=== PATIENT | female | born 1960 | race Caucasian/White ===

== ENCOUNTER 2022-04-02 09:07 | Day surgery (SDC) | payer OTHER, SELFPAY ==
[2022-03-23 13:37] VITALS: BMI 31.5
[2022-03-26 09:37] VITALS: BMI 30.8
--- NOTE | 2022-03-30 14:29 | PM.HPGS ---
History of Present Illness History of Present Illness Consent: Risks, benefits, and alternatives have been discussed and questions answered. Patient agrees to proceed with procedure. Chief complaint: Neoplasm Screening Narrative: Nannette Chu is a 61 year old female Referred for colon cancer screening. Review of Systems Review of Systems: All systems reviewed & are unremarkable except as noted in HPI and below PMFSH Past Medical History Medical History Hypertension Surgical History Surgical History History of tubal ligation Social History Social History Smoking status: Never smoker Alcohol intake: current Substance use type: does not use Living arrangements: with family Spiritual care concerns: No Meds Home Medications and Allergies Home Medications Medication Instructions Recorded Confirmed Type candesartan 16 1 tablet PO DAILY 03/26/22 04/02/22 History mg-hydrochlorothiazide 12.5 mg tablet Allergies Allergy/AdvReac Type Severity Reaction Status Date / Time amoxicillin Allergy Severe Hives / Verified 04/02/22 09:56 Red Face clavulanic acid Allergy Severe Hives / Verified 04/02/22 09:56 Red Face erythromycin base AdvReac Unknown WEIRD Verified 04/02/22 09:56 DREAMS Exam Const: General: alert Orientation/consciousness: patient oriented x3 Resp: Auscultation: clear to auscultation bilaterally Cardio: Rhythm: regular rhythm GI: GI Palp: Yes Soft to palpation and No Tenderness to palpation present (GI) Neuro: General: patient oriented x3 Assessment and Plan Assessment and plan (1) Colon cancer screening: Code(s): Z12.11 - Encounter for screening for malignant neoplasm of colon Status: Acute Assessment and Plan: Colonoscopy with possible biopsy or polypectomy or cautery or injection of substances.
--- NOTE | 2022-04-02 07:24 | P.PNAN_ITS ---
Anes - Initial Pre Proc Eval Procedure: Operation Date: 04/02/22 11:00 Proposed Procedures p Screening Colonoscopy - Rajinder Berry MD Date/Time: 04/02/22 07:24 Surgeon: Rajinder Berry MD Pre Op Diagnosis: Neoplasm Screening Patient Data Age: 61 Gender: F Height: 1.6 m Weight: 79 kg Allergies Allergy/AdvReac Type Severity Reaction Status Date / Time amoxicillin Allergy Severe Hives / Verified 04/02/22 09:56 Red Face clavulanic acid Allergy Severe Hives / Verified 04/02/22 09:56 Red Face erythromycin base AdvReac Unknown WEIRD Verified 04/02/22 09:56 DREAMS Home Medications Medication Instructions Recorded Confirmed Type candesartan 16 1 tablet PO DAILY 03/26/22 04/02/22 History mg-hydrochlorothiazide 12.5 mg tablet Patient hx anesthesia problems: none Family hx anesthesia problems: none Results Review: All pre-operative results and documents have been reviewed as part of the pre- operative evaluation. PMFSH Past Medical History Medical History Hypertension Surgical History Surgical History History of tubal ligation Social History Social History Smoking status: Never smoker Alcohol intake: current Substance use type: does not use Living arrangements: with family Spiritual care concerns: No Anes - Eval Final PreProcedure Day of Procedure 04/02/22 07:24 Patient weight: obese Heart: regular rate and rhythm Lungs: clear to auscultation Airway: Mallampati scale class II Neurological: alert and oriented Last oral intake: >/= 8 hours ASA classification: III Emergent: no Anesthetic plan: proceed Anesthesia type and monitoring: general GIVS and standard monitoring Results Review: All pre-operative results and documents have been reviewed as part of the pre- operative evaluation. Informed Consent: The patient's anesthetic plan and its attendant risks and benefits were discussed with the patient/family/POA. Questions were solicited and answers provided to the satisfaction of the patient/family/POA.
[2022-04-02 09:55] VITALS: BP 169/98; PULSE 111; RESP 20; TEMP 37.3; O2SAT 100
[2022-04-02] MEDS: LACTATED RINGERS 1,000 ML 150 ML IV CONT (10:14)
[2022-04-02 11:50] VITALS: BP 106/59; PULSE 87; RESP 14; O2SAT 97
[2022-04-02 12:00] VITALS: BP 105/62; PULSE 91; RESP 16; O2SAT 99
[2022-04-02 12:10] VITALS: BP 114/79; PULSE 78; RESP 18; O2SAT 100
--- NOTE | 2022-04-02 13:50 | WPDANESPN ---
Anes - Prog Note Post-Op Date/Time: 04/02/22 13:50 Cardiovascular status: normal Respiratory status: normal Airway patency: baseline Mental status: baseline Post-Op hydration status: normal Vital Signs: Last Vital Signs Temp 37.3 C 04/02/22 09:55 Pulse 78 04/02/22 12:10 Resp 18 04/02/22 12:10 BP 114/79 04/02/22 12:10 Pulse Ox 100 04/02/22 12:10 O2 Del Method Room Air 04/02/22 12:10 Pain Score (VAS): 0 I/O: Intake & Output 04/01/22 04/02/22 04/02/22 23:59 07:59 15:59 Intake Total 1360 Balance 1360 Post-procedural complaints: none Patient Feedback: Patient satisfied with anesthetic care. Other Findings: Patient vital signs back to baseline. Patient denies nausea and vomiting. Patient's pain under control. Patient OK for discharge.
== END 2022-04-02 12:30 | disposition home or self-care (01) ==
PROVIDERS: PCP Physician Assistant; Visit Provider Internal Medicine Gastroenterology
PROC: 0DJD8ZZ Inspection of Lower Intestinal Tract, Via Natural or Artificial Opening Endoscopic (ICD-10-PCS; CPT 45378; principal; 2022-04-02 11:00)
DX: Z12.11 Encounter for screening for malignant neoplasm of colon (principal)
CPT/HCPCS: 45378

== ENCOUNTER 2023-01-19 11:58 | Emergency (ER) | payer OTHER, SELFPAY ==
[2023-01-19 12:08] VITALS: BP 142/82; PULSE 84; RESP 18; TEMP 36.6; O2SAT 98
--- NOTE | 2023-01-19 12:20 | ED.URI ---
HPI - URI/Sore Throat General Chief Complaint: Upper Respiratory Infection Stated Complaint: Cough,Congestion Time Seen by Provider: 01/19/23 11:59 Source: patient Mode of arrival: ambulatory Limitations: no limitations History of Present Illness HPI Narrative: 62-year-old female presents to [facility] with complaints of harsh barky-like cough, postnasal drip, runny nose, nasal congestion and sore throat from coughing for the past 5-6 days. Patient has been taking ucto-viq-flwwngi Mucinex and Vicks with minimal relief. Patient reports history of bronchitis. Patient denies body aches, chills, nausea vomiting or diarrhea. Patient is nonsmoker. Patient denies sick contacts. Patient denies recent travel. MD elicited complaint: sore throat, rhinorrhea and nasal congestion Pertinent past history: other (bronchitis) Onset (ago): day(s) (5-6) Able to tolerate fluids by mouth: Yes Exacerbating factors: nothing Treatments prior to arrival: cold medicine Related Data Home Medications Medication Instructions Recorded Confirmed losartan 50 mg-hydrochlorothiazide 1 tablet PO DAILY 01/19/23 01/19/23 12.5 mg tablet Allergies Allergy/AdvReac Type Severity Reaction Status Date / Time amoxicillin Allergy Severe Hives / Verified 04/02/22 09:56 Red Face clavulanic acid Allergy Severe Hives / Verified 04/02/22 09:56 Red Face erythromycin base AdvReac Unknown WEIRD Verified 04/02/22 09:56 DREAMS Review of Systems Constitutional: Constitutional: Denies chills, Denies fatigue, Denies fever(s) and Denies weakness ENT: Denies vertigo, Denies dizziness, Denies epistaxis, Denies nasal congestion and Reports sore throat Cardiovascular: Cardiovascular: Denies chest pain Respiratory: Respiratory: Reports cough, Denies dyspnea and Denies wheezing Gastrointestinal: Gastrointestinal: Denies diarrhea, Denies nausea and Denies vomiting Integumentary/Breasts: Skin/Breast: Denies rash Neurologic: Denies dizziness, Denies syncope and Denies headache(s) [facility] Past Medical History Medical History Hypertension Surgical History Surgical History History of tubal ligation Social History Social History Smoking status: Never smoker Alcohol intake: current Substance use type: does not use Living arrangements: with family Spiritual care concerns: No Comments At time of signature, I agree with nursing past medical, surgical, social and family history. There is no relevant family history pertinent to the presenting complaint. Exam Const: General: healthy appearing and no acute distress Nutritional Appearance: well nourished Orientation/consciousness: patient oriented x3 Limitations: no limitations HENMT: Head: normal to inspection Ears: external ears normal, TM's normal bilaterally and EAC's normal Face/Nose/Sinus: Normal external nose present Mouth: Yes Normal oral and palatal mucosa present and Yes moist mucous membranes Throat: posterior oropharynx normal and uvula midline Eyes: Conjunctivae: conjunctivae normal Neck: Neck: normal visual inspection Resp: Effort & Inspection: normal respiratory effort and not labored Auscultation: clear to auscultation bilaterally, no crackles, no rales, no rhonchi and no wheezes Other: Frequent harsh nonproductive cough noted Cardio: Rate: regular rate Heart sounds: no murmurs Skin: General skin exam: normal color Rashes: no rashes Neuro: General: patient oriented x3 Speech: normal speech Gait exam (Neuro): Normal gait present Psych: Affect: normal affect Attitude: cooperative Course Course Level of Care: Express Care Visit Vital Signs Vital signs: Vital Signs Temperature 36.6 C 01/19/23 12:08 Pulse Rate 84 01/19/23 12:08 Respiratory Rate 18 01/19/23 12:08 Blood Pre
== END 2023-01-19 12:37 | disposition home or self-care (01) ==
PROVIDERS: Emergency Provider Nurse Practitioner Family; PCP Physician Assistant
DX: J06.9 Acute upper respiratory infection, unspecified (principal); I10 Essential (primary) hypertension; Z79.899 Other long term (current) drug therapy
CPT/HCPCS: 99213; G0463

== ENCOUNTER 2024-08-07 07:48 | Outpatient (CLI) | payer OTHER, SELFPAY ==
--- NOTE | ~2024-08-07 | CT_ITS ---
CT of the Abdomen and Pelvis: Indication: Renal cyst Technique: 2.5 mm axial scans were obtained through the abdomen and pelvis prior to and following in travenous administration of 100 cc of Omnipaque 350. Dose reduction technique was used on this scan b y utilizing automated exposure control and iterative reconstruction technique. The dose-length produc t (DLP) was 1196.38 mGy-cm. Findings: Scans through the lung bases are unremarkable. The liver, spleen, pancreas, and adrenal glands are within normal limits. Small gallstone present. Bi lateral parapelvic renal cysts are present. There are atherosclerotic calcifications of the aorta. N o lymphadenopathy. No bowel obstruction or bowel wall thickening. There is no evidence to suggest acute appendicitis. Images through the pelvis were performed. Urinary bladder unremarkable. No pelvic mass seen. No ascit es. Impression: Bilateral parapelvic renal cysts. Cholelithiasis. Reviewed, dictated and finalized at [facility]. Impression: Bilateral parapelvic renal cysts. Cholelithiasis.
[2024-08-07 08:20] LABS: Estimated Glomerular Filt Rate 56
== END 2024-08-07 07:49 | disposition home or self-care (01) ==
PROVIDERS: PCP Physician Assistant; Visit Provider Physician Assistant
DX: N28.1 Cyst of kidney, acquired (principal); K80.20 Calculus of gallbladder without cholecystitis without obstruction
CPT/HCPCS: 74178; Q9967

== ENCOUNTER 2025-02-23 09:37 | Outpatient (CLI) | payer OTHER, SELFPAY ==
--- NOTE | ~2025-02-23 | NM_ITS ---
EXAMINATION: NM parathyroid w imaging DATE: 02/23/2025 14:04 INDICATION: Hypercalcemia TECHNIQUE: 19.4 mCi Tc99m sestamibi (Cardiolite) was administered by intravenous route. Anterior images of the neck were obtained at 10 minutes and 3 hours. COMPARISON: None. FINDINGS/IMPRESSION: There is a prominent focus of persistent activity in the mid to inferior left thyroid lobe which is suspicious for parathyroid adenoma. Reviewed, dictated and finalized at location A. B CONSULTANT
--- OUTSIDE RECORDS SUMMARY | 2025-02-23 09:51 | XMS_ITS | Encounter Summary ---
Author Organization [facility] Address [address] [place] [address] Care Team Providers Care Excellence Coach Name Role Phone Griselda Shea [facility] Primary Care Provider + Bailey Newby MD Unavailable [phone] Michael Hercules MD Primary Care Provider [phone] Bigg Hercules MD Primary Care Provider [phone] Reason for Visit * Reason Onset Date Comments Medication 04/21/2024 Encounter Details Date Type Department Care Team (Late st Contact Info) Description 04/21/2024 [employer] Message Enc [facility] Medical Group Family & Internal Medicine [address] [address] Madeline [facility] Provider Vit D Social History Tobacco Use Types Packs/Day Years Used Date Smoking Tobacco: Never Passive Smoke Exposure: Never Smokeless Tobacco: Never Alcohol Use Standard Drinks/Week Comments Yes 6.7 (1 standard drink = 0.6 oz p ure alcohol) ocassional PHQ-2 Answer Date Recorded Patient Health Questionnaire-2 Score 0 04/03/2024 Education Answer Date Recorded What is the highest level of school you have completed or the highest degree you have received? Some college, no degree 01/21/2018 Comments No Sex and Gender Information Value Date Recorded Sex Assigned at Female 04/03/2024 9:43 AM CROWNING INSPECTOR Legal Sex Female 7:33 PM CDT Gender Identity Female 04/03/2024 9:43 AM CROWNING INSPECTOR Sexual Orientation Not on file Occupation Industry Job Start Date Job End Date Not on file Not on file Not on file Not on file documented as of this encounter Progress Notes * Kindra Solorio - 04/21/2024 2:49 PM CST Nannette calling back, states she has been taking 2000 of Vitamin D. She will double up and take 4000 as she does not want to go out an buy another bottle and let the other go to waste. Nannette will then recheck Vitamin D and go from there. If anything different please let her know. NING INSPECTOR documented in this encounter Plan of Treatment Upcoming Encounters Date Type Department Care Team (Late st Contact Info) Description 03/02/2025 10:20 AM CROWNING INSPECTOR Office Visit [facility] Family & Internal Medicine - [address] [address] [place] [id number] [place] [id number] 05/04/2025 12:30 PM CDT Appointment [place] [address] [facility] [address] Daniel Hartmann DO 3 [facility] [address] [place] [address] 05/14/2025 10:30 AM CDT Office Visit [facility] Multispecialty Care - [facility] [address] [facility] [address] [place] [id number] Daniel Hartmann DO [address] [facility] [address] [place] [phone] documented as of this encounter Visit Diagnoses Not on filedocumented in this encounter Additional Health Concerns Assessment Noted Time PHQ-9 Depression Total Score: 0 04/03/19 10:52 AM CROWNING INSPECTOR documented as of this encounter Care Teams Excellence Coach Relationship Specialty Start Date End Date Griselda Shea [facility], [facility]- PCP - General Nurse Practitioner Family 05/21/2308/25 [place] [address] [employer] [address] [place] [address] PCP - General INTERNAL MEDICINE 09/05/24 11/22/24 [place] [address] [employer] [address] [place] [address] PCP - General INTERNAL MEDICINE 11/23/24 Bailey Newby MD [address] [address] ENDOCRINOLOGY 05/07/24 documented as of this encounter
--- OUTSIDE RECORDS SUMMARY | 2025-02-23 09:51 | XMS_ITS | Encounter Summary ---
Author Organization [facility] Address [facility] [place] [address] Care Team Providers Care Tailor Helper Name Role Phone Bailey Newby MD Unavailable [phone] Michael Hercules MD Primary Care Provider [phone] Bigg Hercules MD Primary Care Provider [phone] Reason for Referral * Imaging (Routine) - New Request Specialty Diagnoses / Procedures Referred By Mary hinojosa Referred To Contact RADIOLOGY Diagnoses Lung nodule seen on imaging study Procedures CT CHEST [place] [address] [facility] [address] [place] [address] Phone: tel: fax: Referral ID Status Reason Start Date Expiration Date V isits Requested Visits Authorized [id number] New Request 11/13/2024 11/13/2025 1 1 Encounter Details Date Type Department Care Team (Late st Contact Info) Description 11/09/2024 MyChart Message Enc [facility] Medical Group Family & Internal Medicine [address] [address] [place] [address] [facility] [address] [place] [address] [address] [address] scan with Contrast on November 03 Social History Tobacco Use Types Packs/Day Years [...] Sex Assigned at Female 04/03/2024 9:43 AM ADMINISTRATIVE SUPPORT SPECIALIST Legal Sex Female 7:33 PM CDT Gender Identity Female 04/03/2024 9:43 AM ADMINISTRATIVE SUPPORT SPECIALIST Sexual Orientation Not on file Occupation Industry Job Start Date Job End Date Not on file Not on file Not on file Not on file documented as of this encounter Progress Notes * Suyapa Singh MA - 11/13/2024 2:33 PM CDT Followed up with patient about CT results and apt with Dr. Hartmann. Patient is to see Dr. Hartmann May 14 2025. He ordered more imaging that saul is to get done before her appt with him. Patient mentioned possibly seeing another provider within the office. Has Est Care apt with Dr. Agosto 11/23 @ 4:20 * Saul Thomas LPN - 11/12/2024 2:17 PM CDT Pt called she has appt with Dr. Hartmann 11/13/24 and has not heard of CT chest results in or sent to Dr. Hartmann's office [place] called [facility] about this and there is no notes if they call her back Imaging status still says Active in process Pt is going to call [facility] now to speak to radiology dept * Suyapa Singh MA - 11/10/2024 3:36 PM CDT Called radiology at [facility] (where pt got CT done) left message with reception manager to call me back about pt CT. * Saul Thomas LPN - 11/10/2024 2:34 PM CDT Pt called said that she checked with Dr. Hartmann and he still does not have the CT her appt with in on 11/13/24 she will check again on 11/12/24 if she does not have results no need to keep appt with Shahbaz could someone call and see what is taking so lone ? documented in this encounter Plan of Treatment Upcoming Encounters Date Type Department Care Team (Late st Contact Info) Description 03/02/2025 10:20 AM ADMINISTRATIVE SUPPORT SPECIALIST Office Visit [facility] Family & Internal Medicine - [place] [id number] [place] [address] [place] [address] [facility] [address] [place] [address] 05/04/2025 12:30 PM CDT [place]ment [place] [address] Daniel Hartmann DO 3 [facility] [address] [place] [address] 05/14/2025 10:30 AM CDT Office Visit [facility] Multispecialty Care - [facility] [address] [facility] [address] [place] [phone] Daniel Hartmann, 3 [facility] [address] [place] [address] Scheduled Orders Name Type Priority Associated Diagnoses Orde r Schedule CT CHEST WO LUNG NOD FLUP CT Routine Lung nodule seen on imaging study Expected: 11/13/2025, Expires: 11/13/2025 documented as of this encounter Visit Diagnoses Diagnosis Lung nodule seen on imaging study- Primary Solitary pulmonary nodule documented in this encounter Additional Health Concerns Assessment Noted Time PHQ-9 Depression Total Score: 0 04/03/19 10:52 AM ADMINISTRATIVE SUPPORT SPECIALIST documented as of this encounter Care Teams Tailor Helper Relationship Specialty [place] [address] [place] [address] PCP - General INTERNAL MEDICINE 09/05/24 11/22/24 [place] [address] [place] [address] PCP - General INTERNAL MEDICINE 11/23/24 Bailey Newby MD [address] [address] ENDOCRINOLOGY 05/07/24 documented as of this encounter
--- OUTSIDE RECORDS SUMMARY | 2025-02-23 09:51 | XMS_ITS | Encounter Summary ---
Author Organization [facility] Address [facility] [place] [address] Care Team Providers Care Neon Sign Servicer Name Role Phone Griselda Shea [facility] Primary Care Provider + Bailey Newby MD Unavailable [phone] Michael Hercules MD Primary Care Provider [phone] Bigg Hercules MD Primary Care Provider [phone] Encounter Details Date Type Department Care Team (Late st Contact Info) Description 05/01/2024 MyChart Message Enc [facility] Medical Group Family & Internal Medicine [address] [address] Griselda Shea, [facility] [address] [address] Referral for Thyroid Social History Tobacco Use Types Packs/Day Years [...] Sex Assigned at Female 04/03/2024 9:43 AM MORTARMAN Legal Sex Female 7:33 PM CDT Gender Identity Female 04/03/2024 9:43 AM MORTARMAN Sexual Orientation Not on file Occupation Industry Job Start Date Job End Date Not on file Not on file Not on file Not on file documented as of this encounter Progress Notes * CHRISTINA Palmer - 05/06/2024 12:38 PM CDT Discussed with RN and agree with below. * Alta Méndez RN - 05/06/2024 11:46 AM CDT Please advise, does patient need to be seen sooner than November. The referral has been entered. * CHRISTINA Palmer - 05/05/2024 9:[address] pulmonology consult for lung nodules, abnormal CT of chest * Alta Méndez RN - 05/05/2024 9:05 AM CDT 04/29/2024 12:42 PM MORTARMAN ----- CT shows slight decrease in left lower lobe nodule, multiple nodules still noted, infectious cause still most likely. Repeat chest CT recommended in 6 months. If she develops respiratory symptoms (I.e shortness of breath, chronic cough, sputum changes, chest pain, fatigue, night sweats), I would recommend repeat sooner and pulmonology consult Please advise. Did you want a pulmonology consult now or order if she develops the above respiratory symptoms? I did not enter one at this time? Please let me know. Thanks! documented in this encounter Plan of Treatment Upcoming Encounters Date Type Department Care Team (Late st Contact Info) Description 03/02/2025 10:20 AM MORTARMAN Office Visit [facility] Family & Internal Medicine - [place] [address] [place] [address] [place] [address] [facility] [address] [place] [address] 05/04/2025 12:30 PM CDT Appointment [place] [address] [facility] [place] [address] Daniel Hartmann DO [address] [facility] [address] [place] [address] 05/14/2025 10:30 AM CDT Office Visit [facility] Multispecialty Care - [facility] [address] [facility] [address] [place] [address] Daniel Hartmann DO [address] [facility] [address] [place] [address] documented as of this encounter Visit Diagnoses Not on filedocumented in this encounter Additional Health Concerns Assessment Noted Time PHQ-9 Depression Total Score: 0 04/03/19 10:52 AM MORTARMAN documented as of this encounter Care Teams Neon Sign Servicer Relationship Specialty Start Date End Date Griselda Shea, BUG [employer]IMMER- PCP - General Nurse Practitioner Family 05/21/2308/25 [place] [address] [facility] [address] [place] [address] PCP - General INTERNAL MEDICINE 09/05/24 11/22/24 [place] [address] [facility] [address] [place] [address] PCP - General INTERNAL MEDICINE 11/23/24 Bailey Newby MD [address] [address] ENDOCRINOLOGY 05/07/24 documented as of this encounter
--- OUTSIDE RECORDS SUMMARY | 2025-02-23 09:51 | XMS_ITS | Encounter Summary ---
Author Organization [facility] Address [facility] [place] [address] Care Team Providers Care Student Support Services Director Name Role Phone Griselda Shea [facility] Primary Care Provider + Bailey Newby MD Unavailable [phone] Michael Hercules MD Primary Care Provider [phone] Bigg Hercules MD Primary Care Provider [phone] Encounter Details Date Type Department Care Team (Late st Contact Info) Description 07/01/2024 [employer]CSpeakeasy Inct Message Enc [facility] Medical [facility] Family & Internal Medicine [address] [address] Griselda Shea, [facility] [address] [address] Ultra sound on my Thyroid Social History Tobacco Use Types Packs/Day [...] Sex Assigned at Female 04/03/2024 9:43 AM CHECKERING MACHINE OPERATOR Legal Sex Female 7:33 PM CDT Gender Identity Female 04/03/2024 9:43 AM CHECKERING MACHINE OPERATOR Sexual Orientation Not on file Occupation Industry Job Start Date Job End Date Not on file Not on file Not on file Not on file documented as of this encounter Plan of Treatment Upcoming Encounters Date Type Department Care Team (Late st Contact Info) Description 03/02/2025 10:20 AM CHECKERING MACHINE OPERATOR Office Visit [facility] Family & Internal Medicine - [place] [address] [place] [address] [place] [address] [facility] [address] [place] [phone] 05/04/2025 12:30 PM CDT Appointment [facility] [address] [place] [address] Daniel Hartmann DO [address] [facility] [address] [place] [address] 05/14/2025 10:30 AM CDT Office Visit [facility] Multispecialty Care - [facility] [address] [facility] [address] [place] [address] Daniel Hartmann DO [address] [facility] [address] [place] [address] documented as of this encounter Visit Diagnoses Not on filedocumented in this encounter Additional Health Concerns Assessment Noted Time PHQ-9 Depression Total Score: 0 04/03/19 10:52 AM CHECKERING MACHINE OPERATOR documented as of this encounter Care Teams Student Support Services Director Relationship Specialty Start Date End Date Griselda Shea, [facility]- PCP - General Nurse Practitioner Family 05/21/2308/25 [place] [address] [place] [address] PCP - General INTERNAL MEDICINE 09/05/24 11/22/24 [place] [address] [place] [address] PCP - General INTERNAL MEDICINE 11/23/24 Bailey Newby MD [address] [address] ENDOCRINOLOGY 05/07/24 documented as of this encounter
--- OUTSIDE RECORDS SUMMARY | 2025-02-23 09:52 | XMS_ITS | Clinical Summary ---
Author Organization [facility] Address [facility] [place] [address] Care Team Providers Care Sales Management Trainee Name Role Phone Bailey Newby MD Unavailable [phone] Bigg Hercules MD Primary Care Provider [phone] Allergies Active Allergy Reactions Criticality Noted Date Comments Azithromycin Hives Medium 01/08/2024 Erythromycin Base Other (see comment) 3 Weird dreams Medications losartan-hydroCHL OROthiazide (HYZAAR) 50-12.5 MG tabletIndications :Primary hypertension TAKE 1 TABLET BY MOUTH DAILY 90 tablet 3 06/26/19 25 Active Cholecalciferol (VITAMIN D3) 50 MCG (1999 UT) Cap 06/27/19 25 Active calcium carb-cholecalcife rol (CALTRATE+D) 600-10 MG-MCG Tab tablet 1 tablet daily. Active rosuvastatin (CRESTOR) 10 MG tabletIndications :Other hyperlipidemia Take 1 tablet (10 mg total) by mouth nightly at bedtime. 90 tablet 1 02/09/20 25 Active rosuvastatin (CRESTOR) 10 MG tabletIndications :Other hyperlipidemia Take 1 tablet (10 mg total) by mouth nightly at bedtime. 30 tablet 2 11/24/19 25 025 Discontinued rosuvastatin (CRESTOR) 10 MG tabletIndications :Other hyperlipidemia TAKE 1 TABLET(10 MG) BY MOUTH EVERY NIGHT AT BEDTIME 90 tablet 1 01/26/20 25 025 Discontinued(Re order) Active Problems Problem Noted Date Diagnosed Date Thyroid nodule 11/23/2024 Renal cyst 11/23/2024 Assessment & Plan (11/23/2024 5:11 PM CDT): - She recently had a CT scan in April or July 2024 with her urologist Lung nodule seen on imaging study 11/13/2024 Assessment & Plan (11/23/2024 5:11 PM CDT): - She is under the care of a reporter and is advised to follow up with the reporter as scheduled in 6 months for a follow-up CT scan. Hypercalcemia 09/25/2017 Ovarian cyst 09/24/2017 Right flank pain 01/23/2017 Atrial septal aneurysm 05/12/2012 Hyperlipidemia 05/12/2012 Assessment & Plan (11/23/2024 5:11 PM CDT): - Her LDL cholesterol level remains elevated despite dietary modifications. - She discussed her risk factors including hypertension, postmenopausal status, and being slightly overweight. She was counseled on maintaining a healthy diet rich in fresh fruits, vegetables, and omega-3 fatty acids from nuts and fish. - Rosuvastatin 10 mg daily will be started. Orders: rosuvastatin (CRESTOR) 10 MG tablet; Take 1 tablet (10 mg total) by mouth nightly at bedtime. LIPID PANEL; Future Primary hypertension 05/12/2012 Assessment & Plan (11/23/2024 5:11 PM CDT): - Her blood pressure is slightly elevated today. - She reported home blood pressure readings of 135/70 and 140. - She was advised to continue monitoring her blood pressure at home and bring the readings to her next appointment. A reduction in salt intake is also recommended. - The current dosage of losartan hydrochlorothiazide 50/12.5 mg once daily will be continued. Orders: COMPREHENSIVE METABOLIC PANEL; Future CBC W/DIFF AUTOMATED; Future Murmur 05/12/2012 Resolved Problems Problem Noted Date Diagnosed Date Resolved Date Chest pain 05/10/2021 05/29/2023 Normal routine physical examination 09/24/2017 11/06/2019 Bronchospasm 03/08/2017 05/29/2023 Right acute otitis media 01/23/201704/2023 URI, acute 01/23/2017 05/29/2023 UTI (urinary tract infection) 01/23/2017 05/29/2023 Encounter for preventive health examination 04/22/2012 11/06/2019 Encounters Date Type Department Care Team Description 02/08/2025 Results Follow-Up [facility] Family & Internal Medicine [facility] [address] [place] [address] Bigg Hercules MD HEMOGLOBIN, GLYCOSYLATED, CBC W/DIFF, TSH W/REFLEX, Additional followed-up results: 2 02/05/2025 Orders Only [facility] Family & Internal Medicine [facility] [address] [place] [address] Bigg Hercules MD from Last 3 Months Immunizations Immunization Administration Dates Next Due Arexvy Respiratory Syncytial Virus (RSV, adjuvanted) 0.5 mL, PF 03/04/2024 Influenza (Generic) 12/10/2014 Influenza Adult (Generic) 12/17/2022,12/24/2016 PFIZER COVID-19 (ORIGINAL FO RMULATION, PURPLE CAP) mRNA, LNP-S, PF, 30 MCG/0.3 ML DOSE 11/28/2020,11/03/2020 Tdap (Generic) 12/24/2016 Family History Medical History Relation Comments Heart Disease Brother Hypertension Brother Heart Disease Father Hypertension Father Diabetes Maternal Aunt Arthritis Mother Breast Cancer Mother Cancer Mother Hyperlipidemia Mother Hypertension Mother Breast Cancer Sister Lung cancer Cancer Sister Lung cancer Early Hearing Loss Sister In her 60 s Hypertension Sister Relation Status Comments Brother Father Maternal Aunt Mother Alive Sister Social History Tobacco Use Types Packs/Day Years Used Date Smoking Tobacco: Never Passive Smoke Exposure: Never Smokeless Tobacco: Never Tobacco Cessation:Counseling Given: No Alcohol Use Standard Drinks/Week Comments Yes 6.7 [...] Sex Assigned at Female 04/03/2024 9:43 AM SOLID SURFACE FABRICATOR Legal Sex Female 7:33 PM CDT Gender Identity Female 04/03/2024 9:43 AM SOLID SURFACE FABRICATOR Sexual Orientation Not on file Occupation Industry Job Start Date Job End Date Not on file Not on file Not on file Not on file Last Filed Vital Signs Vital Sign Reading Time Taken Comments Blood Pressure 152/70 11/23/2024 4:40 PM CDT man ual Pulse 67 11/23/2024 4:27 PM CDT Temperature 36.3 C (97.3 F) 11/23/2024 4:27 PM CDT Respiratory Rate 16 11/23/2024 4:27 PM CDT Oxygen Saturation 99% 11/23/2024 4:27 PM CDT Inhaled Oxygen Concentration - - Weight 77.9 kg (171 lb 12.8 oz) 11/23/2024 4:27 PM CDT Height 160 cm (5' 3) 11/23/2024 4:27 PM CDT Body Mass Index 30.43 11/23/2024 4:27 PM CDT Plan of Treatment Upcoming Encounters Date Type Department Care Team (Late st Contact Info) Description 03/02/2025 10:20 AM SOLID SURFACE FABRICATOR Office Visit [facility] Family & Internal Medicine - [address] [phone] [place] [id number] [place] [address] [place] [address] 05/04/2025 12:30 PM CDT Appointment [facility] [address] [facility] [address] Daniel Hartmann DO [address] [facility] [address] [place] [address] 05/14/2025 10:30 AM CDT Office Visit [facility] Multispecialty Care - [facility] [address] [facility] [place] [id number] Daniel Hartmann DO [address] [facility] [address] [place] [address] Health Maintenance Due Date Last Done Comments Cervical Cancer Screening Pap Smear (Age 30 to 64) Every 3 Years 1960 Hepatitis C 1978 Pneumococcal Vaccine: 50+ Years (1 of 1 - PCV) 2010 Zoster Vaccines (1 of 2) 2010 Cervical Cancer Screening Pap with HPV Testing (Age 30 to 64) Every 5 Years 08/30/2020 08/31/2015 Cervical Cancer Screening with HPV 08/30/2020 Annual Physical 12/12/2022 12/12/2021 COVID-19 Vaccine ( season) 2024 11/28/2020, 11/03/2020 Influenza Adult (#1) 2024 12/17/2022, 12/24/2016, 12/10/2014 Mammogram Screening 02/12/2026 02/13/2024, 01/11/2023, 11/03/2021, Additional history exists DTaP, Tdap and Td Vaccines (2 - Td or Tdap) 12/24/2026 12/24/2016 Colorectal Cancer Screening Colonoscopy (10 Years) 04/02/2032 04/02/2022 RSV Immunization or 60+ Years Completed 03/04/2024 PHQ-2 (Physician [place]) Completed 04/03/2024 Hepatitis A Vaccines Aged Out No long er eligible based on patient's age to complete this topic Meningococcal B Vaccine Aged Out No l onger eligible based on patient's age to complete this topic Meningococcal Vaccine Aged Out No ching bib eligible based on patient's age to complete this topic RSV Immunizations Under 20 Months Aged Out No longer eligible based on patient's age to complete this topic Procedures Procedure Name Priority Date/Time Associated Diagnosis Comments COMPREHENSIVE METABOLIC PANEL Routine 02/05/2025 9:42 AM SOLID SURFACE FABRICATOR LIPID PANEL Routine 02/05/2025 9:42 AM SOLID SURFACE FABRICATOR TSH W/REFLEX Routine 02/05/2025 9:42 AM SOLID SURFACE FABRICATOR CBC W/DIFF Routine 02/05/2025 9:42 AM SOLID SURFACE FABRICATOR HEMOGLOBIN, GLYCOSYLATED Routine 02/05/2025 9:42 AM SOLID SURFACE FABRICATOR MG SCREENING W DEANNE KAYLEY DIGI Routine 02/13/2024 12:21 PM SOLID SURFACE FABRICATOR Screening mammogram for breast cancer COLONOSCOPY GENERIC (SCAN ORDER) 04/02/2022 OUTSIDE CYTOPATH CERV/VAG INTERPRET (PAP) 08/31/2015 from Last 3 Months or Most Recently Relevant to Health Maintenance Results * LIPID PANEL (02/05/2025 9:42 AM SOLID SURFACE FABRICATOR) CHOLESTEROL 189 <200 mg/dL [facility] HDL 93 > OR = 50 mg/dL [employer] [facility] TRIGLYCERIDES 76 <150 mg/dL [employer] [facility] LDL (CALCULATED) 80 mg/dL (calc) [facility] Comment: Reference range: <100 Desirable range <100 mg/dL for primary prevention; <70 mg/dL for patients with CHD or diabetic patients with > or = 2 CHD risk factors. LDL-C is now calculated using the Albert-Garcia calculation, which is a validated novel method providing better accuracy than the Friedewald equation in the estimation of LDL-C. Albert SS et al. DIAMANTE. 2013;310(19): 1335-1840 (http://education.Intellijoule/faq/MCQ831) CHOL/HDL RATIO 2.0 <5.0 (calc) [facility] NON HDL CHOLESTEROL 96 <130 mg/dL (calc) [facility] Comment: For patients with diabetes plus 1 major ASCVD risk factor, treating to a non-HDL-C goal of <100 mg/dL (LDL-C of <70 mg/dL) is considered a therapeutic option. 02/05/2025 9:42 AM SOLID SURFACE FABRICATOR 02/05/2025 9:43 AM SOLID SURFACE FABRICATOR Narrative Doctor [employer] LILLIAN WINKLER - 02/06/2025 5:12 AM SOLID SURFACE FABRICATOR FASTING:YES FASTING: YES Resulting Agency Comment Performing Organization Information: Site ID: [place] Name: [facility] Address: [address] [place] [address] Director: Zander Rodrigues MD Bigg Hercules MD LABORATORY Final Result Performing Organization Address [facility] Co de Phone Number OLIVER WINKLER [employer] [place] [facility] [address] [place] [address], [place] * HEMOGLOBIN, GLYCOSYLATED (02/05/2025 9:42 AM SOLID SURFACE FABRICATOR) HGB A1C 5.3 <5.7 % of total Hgb [facility] Comment: For the purpose of screening for the presence of diabetes: <5.7% Consistent with the absence of diabetes 5.7-6.4% Consistent with increased risk for diabetes (prediabetes) > or =6.5% Consistent with diabetes This assay result is consistent with a decreased risk of diabetes. Currently, no consensus exists regarding use of hemoglobin A1c for diagnosis of diabetes in children. According to [place] Diabetes Association (ADA) guidelines, hemoglobin A1c <7.0% represents optimal control in non- diabetic patients. Different metrics may apply to specific patient populations. Standards of Medical Care in Diabetes(ADA). 02/05/2025 9:42 AM SOLID SURFACE FABRICATOR 02/05/2025 9:43 AM SOLID SURFACE FABRICATOR Narrative [facility] SNYDER [facility] - 02/06/2025 5:12 AM SOLID SURFACE FABRICATOR FASTING:YES FASTING: YES Resulting Agency Comment Performing Organization Information: Site ID: Name: [facility] Address: [address] [place] [address] Director: Zander Rodrigues Bigg Hercules MD LABORATORY Final Result Performing Organization Address [facility] Co de Phone Number OLIVER WINKLER [employer], [place] [address] [place] [phone], * (ABNORMAL) COMPREHENSIVE METABOLIC PANEL (02/05/2025 9:42 AM SOLID SURFACE FABRICATOR) GLUCOSE 108(H) 65 - 99 mg/dL [employer] [facility] Comment: Fasting reference interval For someone without known diabetes, a glucose value between 100 and 125 mg/dL is consistent with prediabetes and should be confirmed with a follow-up test. BUN 12 7 - 25 mg/dL [facility] CREATININE S/P/B 0.83 0.50 - 1.05 mg/dL [employer] [facility] GFR ESTIMATE 79 > OR = 60 mL/min/1. 73m2 [facility] BUN CREATININE RATIO SEE NOTE: 6 - 22 (calc) [facility] Comment: Not Reported: BUN and Creatinine are within reference range. SODIUM S/P/B 137 135 - 146 mmol/L [facility] POTASSIUM S/P/B 4.3 3.5 - 5.3 mmol/L [employer] [facility] CHLORIDE S/P/B 103 98 - 110 mmol/L [employer] [facility] CO2 28 20 - 32 mmol/L [employer] [facility] CALCIUM S/P/B 10.4 8.6 - 10.4 mg/dL [facility] TOTAL PROTEIN S/P/B 7.0 6.1 - 8.1 g/dL [facility] ALBUMIN S/P/B 4.5 3.6 - 5.1 g/dL [employer] [facility] GLOBULIN 2.5 1.9 - 3.7 g/dL (calc) [employer] [facility] ALBUMIN/GLOBULI N RATIO 1.8 1.0 - 2.5 (calc) [employer] [facility] BILIRUBIN TOTAL S/P/B 0.5 0.2 - 1.2 mg/dL [facility] ALKALINE PHOSPHATASE S/P/B 92 37 - 153 U/L [employer] [facility] AST 20 10 - 35 U/L [employer] [facility] ALT 28 6 - 29 U/L [employer] [facility] 02/05/2025 9:42 AM SOLID SURFACE FABRICATOR 02/05/2025 9:43 AM SOLID SURFACE FABRICATOR Narrative [facility] VAUGH[facility] - [facility] - 02/06/2025 5:12 AM SOLID SURFACE FABRICATOR FASTING:YES FASTING: YES Resulting Agency Comment Performing Organization Information: Site ID: [place] Name: [facility] Address: [address] [place] [address] Director: Zander Rodrigues MD Bigg Hercules MD LABORATORY Final Result [facility] [employer] [facility] [address] [place] [address], [place] * CBC W/DIFF (02/05/2025 9:42 AM SOLID SURFACE FABRICATOR) WBC 8.3 3.8 - 10.8 Thousand/u L [facility] RBC 4.56 3.80 - 5.10 Million/uL [facility] [place] HGB 14.2 11.7 - 15.5 g/dL [facility] HCT 42.9 35.9 - 46.0 % [employer] [facility] MCV 94.1 81.4 - 101.7 fL [facility] MCH 31.1 27.0 - 33.0 pg [facility] MCHC 33.1 31.6 - 35.4 g/dL [facility] RDW 11.8 11.0 - 15.0 % [employer] [facility] PLT 257 140 - 400 Thousand/u L [facility] MPV 12.2 7.5 - 12.5 fL [employer] [facility] [place] ABS. NEUTROPHILS 5,362 1,500 - 7,800 cells/uL [facility] ABS. LYMPHOCYTES 2,141 850 - 3,900 cells/uL [facility] ABS. MONOCYTES 647 200 - 950 cells/uL [facility] [place] ABS. EOSINOPHILS 91 15 - 500 cells/uL [facility] ABS. BASOPHILS 58 0 - 200 cells/uL [facility] SEG NEUTROPHILS 64.6 % [facility] LYMPHOCYTES 25.8 % [employer] [facility] MONOCYTES 7.8 % [facility] [facility] [place] EOSINOPHILS 1.1 % [employer] [place] BASOPHILS 0.7 % [employer] [facility] 02/05/2025 9:42 AM SOLID SURFACE FABRICATOR 02/05/2025 9:43 AM SOLID SURFACE FABRICATOR Narrative [facility] [facility] - 02/06/2025 5:12 AM SOLID SURFACE FABRICATOR FASTING:YES FASTING: YES Resulting Agency Comment Performing Organization Information: Site ID: [place] Name: [facility] [employer] Address: [address] [place] [address] Director: Zander Rodrigues MD us Bigg Hercules MD LABORATORY Final Result [facility] [employer] [facility] [address] [place] [address], * TSH W/REFLEX (02/05/2025 9:42 AM SOLID SURFACE FABRICATOR) TSH 2.77 0.40 - 4.50 mIU/L [facility] SANTO 02/05/2025 9:42 AM SOLID SURFACE FABRICATOR 02/05/2025 9:43 AM SOLID SURFACE FABRICATOR Narrative [facility] - 02/06/2025 5:12 AM SOLID SURFACE FABRICATOR FASTING:YES FASTING: YES Resulting Agency Comment Performing Organization Information: Site ID: [id number] Name: [facility] Address: [address] [facility] [place] [address] Director: Zander Rodrigues MD Bigg Hercules MD LABORATORY Final Result [facility] [address] [place] [address], [place] * MG SCREENING W DEANNE KAYLEY DIGI (02/13/2024 12:21 PM SOLID SURFACE FABRICATOR) Anatomical Region Laterality Modality Breast Bilateral Mammography 02/13/2024 1:53 PM SOLID SURFACE FABRICATOR Impressions 02/13/2024 2:01 PM SOLID SURFACE FABRICATOR ===== IMPRESSION: ===== 1. Stable mammographic appearance with no new findings to suggest malignancy in either breast. Assessment: ACR BI-RADS 1 - NEGATIVE Recommendation: 1:Routine Screening Bilateral Comments: Ordered By: TRACY MEAD Interpreted By: Lelo Evans, 02/13/2024 1:53 PM Narrative 02/13/2024 2:01 PM SOLID SURFACE FABRICATOR [facility] [address] [place] [address] EXAMINATION: Digital bilateral screening mammogram with 3-D tomosynthesis EXAM DATE/TIME: 02/13/2024 11:55 AM REASON FOR EXAM: Routine screening Breast carcinoma in mother at age 70. COMPARISON: 01/11/2023.. 11/03/2021 Technique: Digital screening mammography of both breasts was performed in addition to 3-D Tomosynthesis technique. This study was read with the assistance of a computer-aided detection system. Tissue density: There are scattered areas of fibroglandular density. Findings: There is no new focal asymmetry, dominant mass lesion, area of skin thickening, or cluster of suspicious appearing calcifications in either breast to suggest malignancy. us Tracy DOMINGUEZ MAMMO Final Result * COLONOSCOPY GENERIC (04/02/2022) 04/02/2022 [facility] Scanned SCANNING Final Resu lt * PAP SMEAR WITH HPV (08/31/2015) 08/31/2015 Narrative 08/31/2015 Ordered by an unspecified provider. us Documents Scanned SCANNING Final Result from Last 3 Months or Most Recently Relevant to Health Maintenance Insurance [employer] Care Teams Sales Management Trainee Relationship Specialty [place] [address] [facility] [address] [place] [address] PCP - General INTERNAL MEDICINE 11/23/24 Bailey Newby MD [address] [address] ENDOCRINOLOGY 05/07/24
--- OUTSIDE RECORDS SUMMARY | 2025-02-23 09:52 | XMS_ITS | Encounter Summary ---
Author Organization [facility] Address [address] [place] [address] Care Team Providers Care [employer] Administrator Name Role Phone Griselda Shea [facility] Primary Care Provider + Bailey Newby MD Unavailable [phone] Michael Hercules MD Primary Care Provider [phone] Bigg Hercules MD Primary Care Provider [phone] Encounter Details Date Type Department Care Team (Late st Contact Info) Description 04/21/2024 [email or web address] Message Enc [facility] Family [facility] Internal Medicine [address] [address] [facility] results Social History Tobacco Use Types Packs/Day Years [...] Sex Assigned at Female 04/03/2024 9:43 AM [employer]ARLY [employer] TE[employer]ER Legal Sex Female 7:33 PM CDT Gender Identity Female 04/03/2024 9:43 AM 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 [address] [place] [address] Daniel Hartmann, [address] [facility] [address] [place] [address] 05/14/2025 10:30 AM CDT Office Visit [facility] [address] [facility] [place] [id number] Daniel Hartmann DO [address] 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 documented as of this encounter Care Teams [employer] Administrator Relationship Specialty Start Date End Date Griselda Shea, F[employer]ORING O[employer] FILTERER- PCP - General Nurse Practitioner Family 05/21/2308/25 [place] [address] [place] [address] PCP - General INTERNAL MEDICINE 09/05/24 11/22/24 [place] [address] [place] [address] PCP - General INTERNAL MEDICINE 11/23/24 Bailey Newby MD [address] [address] ENDOCRINOLOGY 05/07/24 documented as of this encounter
== END 2025-02-23 09:38 | disposition home or self-care (01) ==
PROVIDERS: PCP Internal Medicine; Visit Provider Internal Medicine Endocrinology, Diabetes & Metabolism
DX: E83.52 Hypercalcemia (principal); D35.1 Benign neoplasm of parathyroid gland; R79.89 Other specified abnormal findings of blood chemistry
CPT/HCPCS: 78070; A9500